=== PATIENT | female | born 1940 | race Caucasian/White ===

== ENCOUNTER → 2019-02-02 10:05 | Outpatient (CLI) | payer MEDICARE, SELFPAY ==
[2019-02-02 12:15] LABS: Alanine Aminotransferase 21 IU/L (9-52); Aspartate Aminotransferase 32 IU/L (14-36); BUN Creatinine Ratio 16.4 (6-22); Blood Urea Nitrogen 18 mg/dL (7-17); Calcium 9.9 mg/dL (8.4-10.2); Carbon Dioxide 26 mmol/L (22-32); Chloride 104 mmol/L (98-107); Cholesterol 147 mg/dL (140-199); Estimated Glomerular Filt Rate 47.8 mL/min (>60); Glucose 81 mg/dL (80-110); HDL Cholesterol 58 mg/dL (40-60); HEMOLYSIS < 15 (0-50); LDL Cholesterol Calculated 74 mg/dL (<100); Potassium 4.5 mmol/L (3.4-5.1); Sodium 139 mmol/L (137-145); Triglycerides 75 mg/dL (35-150)
[2019-02-02 12:39] LABS: TSH w/ Reflex to FT4 0.32 uIU/mL (0.47-4.68)
== END ==
PROVIDERS: Visit Provider Internal Medicine
DX: I10 Essential (primary) hypertension (principal); E03.9 Hypothyroidism, unspecified; E78.2 Mixed hyperlipidemia
CPT/HCPCS: 36415; 80048; 80061; 84439; 84443; 84450; 84460

== ENCOUNTER 2019-07-06 22:12 | Emergency (ER) | payer MEDICARE, SELFPAY ==
[2019-07-06 22:16] VITALS: BP 207/111; PULSE 80; RESP 18; TEMP 36.6; O2SAT 95
[2019-07-06 22:50] LABS: Add Manual Diff / Slide Review NO; Basophils Absolute Auto 100 /uL (0-100); Eosinophils Absolute Auto 300 /uL (0-450); Eosinophils Percent Auto 4.1 % (2-4); Hematocrit 44.1 % (36-46); Lymphocytes Absolute Auto 3300 /uL (1100-4500); Lymphocytes Percent Auto 38.5 % (25-40); Mean Corpuscular HGB Conc 34.1 % (30-36); Mean Corpuscular Hemoglobin 30.5 PG (26-34); Mean Corpuscular Volume 89.6 fL (80-100); Monocytes Absolute Auto 900 /uL (0-900); Monocytes Percent Auto 10.8 % (3-14); Neutrophils Absolute Auto 3900 /uL (1500-7000); Neutrophils Percent Auto 45.6 % (50-75); Platelet Count 313 X10^3/uL (150-400); Red Blood Cell Count 4.93 X10^6/uL (4.0-5.2); Red Cell Distribution Width 14.1 % (11.6-14.8); White Blood Cell Count 8.5 X10^3/uL (4.5-11.0)
[2019-07-06 22:53] LABS: Alanine Aminotransferase 19 IU/L (9-52); Albumin 4.2 g/dL (3.5-5.0); Albumin Globulin Ratio 1.4 (1.0-2.8); Alkaline Phosphatase 91 U/L (38-126); Aspartate Aminotransferase 34 IU/L (14-36); BUN Creatinine Ratio 26.7 (6-22); Bilirubin Total 0.3 mg/dL (0.2-1.3); Blood Urea Nitrogen 24 mg/dL (7-17); Carbon Dioxide 24 mmol/L (22-32); Chloride 105 mmol/L (98-107); Creatine Kinase 156 U/L (30-135); Estimated Glomerular Filt Rate > 60.0 mL/min (>60); Glucose 116 mg/dL (80-110); HEMOLYSIS < 15 (0-50); Lipase 252 U/L (23-300); Potassium 4.3 mmol/L (3.4-5.1); Sodium 137 mmol/L (137-145); Total Protein 7.2 g/dL (6.3-8.2)
[2019-07-06 22:57] LABS: INR 0.9 (0.9-1.3); Prothrombin Time 10.1 SECONDS (10.1-12.7)
[2019-07-06 22:59] LABS: PTT Partial Thromboplastin Tim 30 SECONDS (26.4-36.2)
[2019-07-06 23:05] LABS: Troponin I < 0.012 ng/mL (0.01-0.034)
[2019-07-06 23:08] LABS: Creatine Kinase MB 1.63 ng/mL (<2.37)
--- NOTE | 2019-07-06 23:50 | PC.NURSE ---
I was unable to locate her in ED waiting room at 2215.I informed her at triage that I would bring her back to ED allison and to notify admitting if her chest palpitations returned or if she had any other symptoms.I again notified her at approx.2230 of the same.
--- NOTE | 2019-07-07 08:44 | ED_ITS ---
HPI - Chest Pain General Chief Complaint: Chest Pain Stated Complaint: CHEST PAIN DIZZY Source: patient Mode of arrival: Ambulatory Limitations: no limitations Related Data Home Medications Medication Instructions Recorded Confirmed OMEPRAZOLE 20 mg PO QDAY #0 08/06/12 [FISH OIL] 500 mg PO QDAY #0 08/06/12 aspirin 81 mg PO QDAY #0 08/06/12 cholecalciferol (vitamin D3) 1,000 unit PO QDAY #0 08/06/12 [Vitamin D3] ezetimibe-simvastatin [Vytorin 1 tab PO QDAY #0 08/06/12 10-20] losartan 100 mg PO QDAY #0 08/16/12 [HAIR SKIN AND NAILS] 1 cap PO QDAY #0 06/01/17 ascorbic acid (vitamin C) 500 mg PO QDAY #0 06/01/17 docusate sodium 100 mg PO BIDP PRN #0 06/01/17 levothyroxine [Levoxyl] 88 mcg NG QDAY #0 06/01/17 vitamins A,C,B-jask-fwmhsy 1 cap PO QDAY #0 06/01/17 [PreserVision AREDS] Previous Rx's Medication Instructions Recorded azithromycin [Zithromax] 250 mg PO SEE INSTRUCTIONS #6 tab 06/01/17 Allergies Allergy/AdvReac Type Severity Reaction Status Date / Time Sulfa (Sulfonamide Allergy Unknown Unverified 01/04/18 13:01 Antibiotics) Patient History Medical/Surgical History Social History Smoking Status: Never smoker Family/Social History Social History Smoking Status: Never smoker Substance Use Type: does not use Exam Initial Vital Signs Initial Vital Signs: Vital Signs Temperature 98 F 07/06/19 22:16 Pulse Rate 80 07/06/19 22:16 Respiratory Rate 18 07/06/19 22:16 Blood Pressure 207/111 H 07/06/19 22:16 Pulse Oximetry 95 07/06/19 22:16 MDM - Chest Pain Lab Data Attestation: I reviewed the patient's lab results. Result diagrams: 07/06/19 22:35 07/06/19 22:35 Labs: Lab Results 07/06/19 07/06/19 07/06/19 Range/Units 22:35 22:35 22:35 WBC 8.5 (4.5-11.0) X10^3/uL RBC 4.93 (4.0-5.2) X10^6/uL Hgb 15.0 (12.0-16.0) g/dL Hct 44.1 (36-46) % MCV 89.6 (80-100) fL MCH 30.5 (26-34) PG MCHC 34.1 (30-36) % RDW 14.1 (11.6-14.8) % Plt Count 313 (150-400) X10^3/uL Neut % (Auto) 45.6 L (50-75) % Lymph % (Auto) 38.5 (25-40) % [place] % (Auto) 10.8 (3-14) % Eos % (Auto) 4.1 H (2-4) % Baso % (Auto) 1.0 (0-2) % Neut # (Auto) 3900 (3391-3923) /uL Lymph # (Auto) 3300 (5917-0965) /uL [place] # (Auto) 900 (0-900) /uL Eos # (Auto) 300 (0-450) /uL Baso # (Auto) 100 (0-100) /uL PT 10.1 (10.1-12.7) SECONDS INR 0.9 (0.9-1.3) APTT 30 (26.4-36.2) SECONDS Sodium 137 (137-145) mmol/L Potassium 4.3 (3.4-5.1) mmol/L Chloride 105 (98-107) mmol/L Carbon Dioxide 24 (22-32) mmol/L BUN 24 H (7-17) mg/dL Creatinine 0.90 (0.52-1.04) mg/dL Estimated GFR > 60.0 (>60) mL/min BUN/Creatinine Ratio 26.7 H (6-22) Glucose 116 H (80-110) mg/dL Calcium 10.0 (8.4-10.2) mg/dL Total Bilirubin 0.3 (0.2-1.3) mg/dL AST 34 (14-36) IU/L ALT 19 (9-52) IU/L Alkaline Phosphatase 91 (38-126) U/L Total Creatine Kinase 156 H (30-135) U/L CK-MB (CK-2) 1.63 (<2.37) ng/mL CK-MB (CK-2) Rel Index 1.0 L (1.5-5.0) % Troponin I < 0.012 (0.01-0.034) ng/mL Total Protein 7.2 (6.3-8.2) g/dL Albumin 4.2 (3.5-5.0) g/dL Globulin 3.0 (1.7-4.1) g/dL Albumin/Globulin Ratio 1.4 (1.0-2.8) Lipase 252 (23-300) U/L ECG Data Attestation: I personally reviewed and interpreted this ECG as follows: Interpretation: Sinus rhythm occasional ectopic complex, rate 82 P are 192 QRS is 77 QTC of 409. Nonspecific ST change. Patient has some artifact EKG 2. Shows sinus rhythm occasional ectopic premature complex. Rate 82, P are of a 181, QRS is [address] elevation depression appreciated MDM Narrative Medical decision making narrative: Patient left without being seen. Patient was hypertensive, EKGs do not show any acute changes. Shows a BUN of 24, glucose of 116, total CK is 156 with a negative troponin. Discharge Plan Departure Patient Disposition: Left Without Being Seen Clinical Impression: Patient left without being seen Discharge Date/Time: 07/07/19 00:00
== END 2019-07-07 | disposition left against medical advice (07) ==
PROVIDERS: Emergency Provider Emergency Medicine
DX: R07.9 Chest pain, unspecified (principal); I10 Essential (primary) hypertension
CPT/HCPCS: 36415; 80053; 82550; 82553; 83690; 84484; 85025; 85610; 85730; 93005; 99282

== ENCOUNTER 2019-07-14 09:36 | Inpatient (IN) | payer MEDICARE, SELFPAY ==
[2019-07-14] VITALS (13 sets, daily range): BP systolic 102–170; BP diastolic 56–98; PULSE 68–88; RESP 14–28; TEMP 36.5–37.1; O2SAT 93–99; BMI 34.1
--- NOTE | 2019-07-14 09:49 | DI.CT.S_ITS ---
PROCEDURE: CT HEAD/BRAIN WO CON INDICATIONS: confusion TECHNIQUE: Noncontrast 4.5 mm thick angled axial sections acquired from the foramen magnum to the vertex, with coronal and sagittal reformats. For radiation dose reduction, the following was used: automated exposure control, adjustment of mA and/or kV according to patient size. COMPARISON: [facility], CT, HEAD WITHOUT CONTRAST, 11/14/2012, 12:53. FINDINGS: Image quality: Excellent. CSF spaces: Basal cisterns are patent. No extra-axial fluid collections. Ventricles are normal in size and shape. Brain: No midline shift. No intracranial masses or hemorrhage. No hyperdensity in a vascular distribution to suggest infarction. Periventricular hypodensity consistent with chronic microvascular ischemic disease which is increased compared to 2013. Intracranial distal ICA atherosclerotic plaque. Age related volume loss. Skull and face: Calvarium and visualized facial bones are intact, without suspicious lesions. Sinuses: Mild because of thickening in the left ethmoid air cells. Otherwise sinuses and mastoids are clear. IMPRESSION: No acute intracranial abnormality demonstrated. Chronic microvascular ischemic change. Dictated by: Twan Fonseca M.D. on 07/14/2019 at 10:19 Approved by: Twan Fonseca M.D. on 07/14/2019 at 10:22
--- NOTE | 2019-07-14 09:53 | ED.AMS ---
HPI - Altered Mental Status General Chief Complaint: Altered Mental Status Stated Complaint: Mental Status Change Time Seen by Provider: 07/14/19 09:45 Source: patient, family and EMS Mode of arrival: EMS Limitations: altered mental status History of Present Illness HPI narrative: Patient is an 79-year-old female who presents with altered mental status. She apparently called 911 asking for help she was then found on the bathroom floor after having diarrhea is she does not remember calling 911 she does not know ear did she was very confused she is not sure what happened. I spoked with the daughter on the phone who states that she was acting herself yesterday however daughter is in [place] apparently has a granddaughter round but she seemed normal yesterday. Today just very confused she was complaining of some abdominal discomfort and diarrhea. She denies any pain she is able to follow commands. She feels like she was drugged and that her brain is foggy. MD complaint: altered mental status and confusion Timing confirmed by: family member Related Data Home Medications Medication Instructions Recorded Confirmed OMEPRAZOLE 20 mg PO QDAY #0 08/06/12 [FISH OIL] 500 mg PO QDAY #0 08/06/12 aspirin 81 mg PO QDAY #0 08/06/12 cholecalciferol (vitamin D3) 1,000 unit PO QDAY #0 08/06/12 [Vitamin D3] ezetimibe-simvastatin [Vytorin 1 tab PO QDAY #0 08/06/12 10-20] losartan 100 mg PO QDAY #0 08/16/12 [HAIR SKIN AND NAILS] 1 cap PO QDAY #0 06/01/17 ascorbic acid (vitamin C) 500 mg PO QDAY #0 06/01/17 docusate sodium 100 mg PO BIDP PRN #0 06/01/17 levothyroxine [Levoxyl] 88 mcg NG QDAY #0 06/01/17 vitamins A,C,C-eqqi-farobl 1 cap PO QDAY #0 06/01/17 [PreserVision AREDS] Previous Rx's Medication Instructions Recorded azithromycin [Zithromax] 250 mg PO SEE INSTRUCTIONS #6 tab 06/01/17 Allergies Allergy/AdvReac Type Severity Reaction Status Date / Time Sulfa (Sulfonamide Allergy Unknown Verified 07/14/19 12:00 Antibiotics) Review of Systems Review of Systems ROS Unobtainable: All systems reviewed & are unremarkable except as noted in HPI and below Constitutional Constitutional: Denies chills, Denies fever(s), Denies lethargy and Denies weakness Eyes Eyes: Denies change in vision, Denies eye discharge, Denies irritation and Denies loss of vision ENT Ears, Nose, Mouth, and Throat: Denies change in voice, Denies neck pain and Denies sore throat Cardiovascular Cardiovascular: Denies chest pain, Denies irregular heart rhythm, Denies lightheadedness, Denies palpitations, Denies dyspnea, Denies dyspnea on exertion and Denies orthopnea Respiratory Respiratory: Denies cough, Denies dyspnea, Denies dyspnea on exertion and Denies wheezing Gastrointestinal Gastrointestinal: Denies abdominal pain, Denies change in bowel habits, Reports diarrhea, Denies nausea and Denies vomiting Musculoskeletal Musculoskeletal: Denies neck pain Integumentary/Breasts Skin/Breast: Denies pruritus, Denies erythema, Denies rash and Denies wounds Neurologic Neurologic: Denies loss of vision and Denies weakness Endocrine Endocrine: Denies palpitations Allergic/Immunologic Allergic/Immunologic: Denies wheezing Patient History Social History Smoking Status: Never smoker alcohol intake: never Social History Smoking Status: Never smoker alcohol intake: never Substance Use Type: does not use Exam Initial Vital Signs Initial Vital Signs: Vital Signs Temperature 98.1 F 07/14/19 09:39 Pulse Rate 88 07/14/19 09:39 Respiratory Rate 15 07/14/19 09:39 Blood Pressure 134/74 07/14/19 09:39 Pulse Oximetry 96 07/14/19 09:39 GENERAL: Alert elderly female confused and in no acute distress. HEENT: Head atraumatic,EOMI, pupils reactive, face symmetric, Dry mucous membranes Neck: No vertebral tenderness no step-offs full range of motion no meningeal signs CARDIOVASCULAR: Regular rate and rhythm without murmurs, rubs or gallops. RESPIRATORY: Breath sounds equal bilaterally, no wheezes rales or rhonchi. ABDOMEN: Soft, nontender. Normoactive bowel sounds all 4 quadrants. No guarding or rebound. EXTREMITIES: Normal range of motion, no clubbing or edema. Neurovascularly intact. Pelvis nontender legs are of equal length NEUROLOGICAL: Alert and oriented x1. Bleach is clear no aphasia or dysarthria. Cranial nerves II through XII grossly intact. Good [id number], good [id number], strength equal bilaterally, no dysarthria or aphasia, sensation in tact to soft touch bilaterally, no visual changes, no facial droop SKIN: Warm, dry, no laceration, no petechiae, no rashes or lesions. Scores GCS Acosta coma scale eye opening: Spontaneous Acosta coma scale verbal response: Confused Acosta coma scale motor response: Obey commands Omar coma scale total score: 14 NIH Stroke Scale Level of Conciousness: Alert, keenly responsive Ask month/age: Answers both questions correctly. Open/close eyes, close hand: Performs both tasks correctly Best gaze horizontal: Normal Visual mercado: No visual loss Facial palsy: Normal symetrical movement Left arm drift: No drift for full 10 sec Right arm drift: No drift for full 10 sec Left leg drift: No drift for full 10 sec Right leg drift: No drift for full 10 sec Limb ataxia: Absent Sensory on face/arms/legs: Normal, no sensory loss Best language: No aphasia, normal Dysarthria: Normal Extinction or inattention: No abnormality Total NIH Stroke scale score: 0 Course Orders Ordered: ED Orders 07/14/19 09:37 Complete Blood Count AUTO DIFF Stat Lipase Stat Partial Thromboplastin Time Stat Prothrombin Time INR Stat 07/14/19 09:49 CT head/brain wo con Stat 07/14/19 09:52 EKG-12 Lead Stat 07/14/19 09:56 CT abdomen pelvis w con Stat 07/14/19 10:22 Blood Culture Stat 07/14/19 11:00 Acetaminophen Stat Comprehensive Metabolic Panel Stat Ethanol (ETOH) Stat Lactate (Lactic Acid) Stat Prolactin Stat Salicylate Stat Thyroid Stimulating Hormone Stat Troponin & CK Cardiac Panel Stat 07/14/19 12:29 Ictotest Urine Stat Urinalysis and Microscopic Stat Urine Culture Stat Urine Drug Screen, Rapid Stat Acetaminophen (Tylenol) 650 mg PO Q6HR PRN PRN Reason: As Needed for Fever/Mild Pain Atorvastatin Calcium (Lipitor) 40 mg PO BEDTIME POLO Enoxaparin Sodium (Lovenox) 30 mg SUBCUT DAILY POLO Sodium Chloride (Normal Saline 0.9%) 1,000 mls @ 75 mls/hr IV CONT POLO Levothyroxine Sodium (Synthroid) 100 mcg PO 0600 POLO Losartan Potassium (Cozaar) 50 mg PO DAILY POLO Memantine (Namenda) 5 mg PO BID POLO Stored In (Pharmacy) 0 each PO PRN PRN PRN Reason: . Pantoprazole Sodium (Protonix) 40 mg PO DAILY POLO Discontinued Medications Dextrose (D50w) 25 gm IV NOW ONE Stop: 07/14/19 11:55 Last Admin: 07/14/19 12:07 Dose: 25 gm Documented by: LION Sodium Chloride (Normal Saline 0.9%) 1,000 mls @ 150 mls/hr IV CONT POLO Stop: 07/14/19 13:54 Last Infusion: 07/14/19 13:28 Dose: 0 mls/hr Documented by: Infusion: 07/14/19 12:07 Dose: 1,000 mls/hr Documented by: Admin: 07/14/19 11:06 Dose: 150 mls/hr Documented by: LION Sodium Chloride (Normal Saline 0.9%) 1,000 mls @ 1,000 mls/hr IV BOLUS ONE Stop: 07/14/19 12:53 Last Admin: 07/14/19 13:29 Dose: 150 mls/hr Documented by: LION Insulin Human Regular (Humulin R) 10 unit IV NOW ONE Stop: 07/14/19 11:55 Last Admin: 07/14/19 12:07 Dose: 10 unit Documented by: LION Cosigned by: RADHA Vital Signs Vital signs: Vital Signs - 8 hr 07/14/19 09:39 07/14/19 09:49 07/14/19 11:00 Temperature 98.1 F Pulse Rate 88 73 73 Respiratory Rate 15 19 16 Blood Pressure 134/74 Blood Pressure [Left Arm] 138/70 147/98 H Pulse Oximetry 96 99 97 07/14/19 11:30 07/14/19 11:56 07/14/19 12:12 Temperature Pulse Rate 75 72 71 Respiratory Rate 18 14 16 Blood Pressure Blood Pressure [Left Arm] 138/70 152/80 H 130/56 L Pulse Oximetry 99 99 97 MDM - Altered Mental Status Lab Data Attestation: I reviewed the patient's lab results. Result diagrams: 07/14/19 09:37 07/14/19 11:00 Labs: Lab Results 07/14/19 07/14/19 07/14/19 Range/Units 09:37 09:37 09:37 WBC 15.4 H (4.5-11.0) X10^3/uL RBC 6.07 H (4.0-5.2) X10^6/uL Hgb 18.6 H (12.0-16.0) g/dL Hct 54.7 H (36-46) % MCV 90.2 (80-100) fL MCH 30.6 (26-34) PG MCHC 33.9 (30-36) % RDW 14.5 (11.6-14.8) % Plt Count 397 (150-400) X10^3/uL Neut % (Auto) 84.7 H (50-75) % Lymph % (Auto) 8.2 L (25-40) % [place] % (Auto) 6.7 (3-14) % Eos % (Auto) 0.0 L (2-4) % Baso % (Auto) 0.4 (0-2) % Neut # (Auto) 77014 H (2464-1792) /uL Lymph # (Auto) 1300 (6225-1591) /uL [place] # (Auto) 1000 H (0-900) /uL Eos # (Auto) 0 (0-450) /uL Baso # (Auto) 100 (0-100) /uL PT 10.2 (10.1-12.7) SECONDS INR 0.9 (0.9-1.3) APTT 30 (26.4-36.2) SECONDS Sodium (137-145) mmol/L Potassium (3.4-5.1) mmol/L Chloride (98-107) mmol/L Carbon Dioxide (22-32) mmol/L BUN (7-17) mg/dL Creatinine (0.52-1.04) mg/dL Estimated GFR (>60) mL/min BUN/Creatinine Ratio (6-22) Glucose (80-110) mg/dL Lactate (0.7-2.1) mmol/L Calcium (8.4-10.2) mg/dL Total Bilirubin (0.2-1.3) mg/dL AST (14-36) IU/L ALT (9-52) IU/L Alkaline Phosphatase (38-126) U/L Total Creatine Kinase (30-135) U/L CK-MB (CK-2) (<2.37) ng/mL CK-MB (CK-2) Rel Index (1.5-5.0) % Troponin I (0.01-0.034) ng/mL Total Protein (6.3-8.2) g/dL Albumin (3.5-5.0) g/dL Globulin (1.7-4.1) g/dL Albumin/Globulin Ratio (1.0-2.8) Lipase 57 D (23-300) U/L TSH (0.47-4.68) uIU/mL Prolactin (3.0-18.6) ng/mL Salicylates (<20) mg/dL Acetaminophen (10-30) ug/mL Ethyl Alcohol ( - 10) mg/dL 07/14/19 07/14/19 07/14/19 Range/Units 11:00 11:00 11:00 WBC (4.5-11.0) X10^3/uL RBC (4.0-5.2) X10^6/uL Hgb (12.0-16.0) g/dL Hct (36-46) % MCV (80-100) fL MCH (26-34) PG MCHC (30-36) % RDW (11.6-14.8) % Plt Count (150-400) X10^3/uL Neut % (Auto) (50-75) % Lymph % (Auto) (25-40) % [place] % (Auto) (3-14) % Eos % (Auto) (2-4) % Baso % (Auto) (0-2) % Neut # (Auto) (9173-8207) /uL Lymph # (Auto) (6817-0823) /uL [place] # (Auto) (0-900) /uL Eos # (Auto) (0-450) /uL Baso # (Auto) (0-100) /uL PT (10.1-12.7) SECONDS INR (0.9-1.3) APTT (26.4-36.2) SECONDS Sodium 136 L (137-145) mmol/L Potassium 5.9 H D (3.4-5.1) mmol/L Chloride 102 (98-107) mmol/L Carbon Dioxide 21 L (22-32) mmol/L BUN 48 H (7-17) mg/dL Creatinine 3.20 H (0.52-1.04) mg/dL Estimated GFR 13.9 L (>60) mL/min BUN/Creatinine Ratio 15.0 (6-22) Glucose 113 H (80-110) mg/dL Lactate 2.0 (0.7-2.1) mmol/L Calcium 10.2 (8.4-10.2) mg/dL Total Bilirubin 0.8 (0.2-1.3) mg/dL AST 37 H (14-36) IU/L ALT 17 (9-52) IU/L Alkaline Phosphatase 89 (38-126) U/L Total Creatine Kinase 184 H (30-135) U/L CK-MB (CK-2) 5.22 H (<2.37) ng/mL CK-MB (CK-2) Rel Index 2.8 (1.5-5.0) % Troponin I < 0.012 (0.01-0.034) ng/mL Total Protein 7.4 (6.3-8.2) g/dL Albumin 4.4 (3.5-5.0) g/dL Globulin 3.0 (1.7-4.1) g/dL Albumin/Globulin Ratio 1.5 (1.0-2.8) Lipase (23-300) U/L TSH 6.12 H (0.47-4.68) uIU/mL Prolactin 9.0 (3.0-18.6) ng/mL Salicylates < 10.0 (<20) mg/dL Acetaminophen < 1 L (10-30) ug/mL Ethyl Alcohol < 10 ( - 10) mg/dL Imaging Data CT scan - head: Radiologist's impression: PROCEDURE: CT HEAD/BRAIN WO CON INDICATIONS: confusion TECHNIQUE: Noncontrast 4.5 mm thick angled axial sections acquired from the foramen magnum to the vertex, with coronal and sagittal reformats. For radiation dose reduction, the following was used: automated exposure control, adjustment of mA and/or kV according to patient size. COMPARISON: [facility], CT, HEAD WITHOUT CONTRAST, 11/14/2012, 12:53. FINDINGS: Image quality: Excellent. CSF spaces: Basal cisterns are patent. No extra-axial fluid collections. Ventricles are normal in size and shape. Brain: No midline shift. No intracranial masses or hemorrhage. No hyperdensity in a vascular distribution to suggest infarction. Periventricular hypodensity consistent with chronic microvascular ischemic disease which is increased compared to 2013. Intracranial distal ICA atherosclerotic plaque. Age related volume loss. Skull and face: Calvarium and visualized facial bones are intact, without suspicious lesions. Sinuses: Mild because of thickening in the left ethmoid air cells. Otherwise sinuses and mastoids are clear. IMPRESSION: No acute intracranial abnormality demonstrated. Chronic microvascular ischemic change. Dictated by: Twan Fonseca M.D. on 07/14/2019 at 10:19 CT scan - abdomen: Radiologist's impression: PROCEDURE: CT ABDOMEN PELVIS W CON INDICATIONS: abdominal pain TECHNIQUE: After the administration of intravenous contrast, 5 mm thick sections acquired from the diaphragm to the symphysis. 5 mm coronal and sagittal reformats were acquired. For radiation dose reduction, the following was used: automated exposure control, adjustment of mA and/or kV according to patient size. COMPARISON: None. FINDINGS: Image quality: Excellent. ABDOMEN: Lung bases: Bibasilar atalectasis. No focal consolidation. No pleural effusion. Normal heart size. Small pericardial effusion. Multivessel coronary artery calcifications. Solid organs: Liver is normal in size and enhancement. Gallbladder surgically absent. Biliary system is non dilated. Pancreas enhances normally. Spleen is normal in size and enhancement. No adrenal nodules. Kidneys demonstrate normal size and enhancement, without hydronephrosis. Simple cyst in the superior renal pole. Peritoneum and bowel: Small hiatal hernia. Bowel loops demonstrate normal wall thickness and caliber. The colon is fluid filled. No free fluid or air. Nodes and vessels: No retroperitoneal or mesenteric adenopathy by size criteria. Aorta and inferior vena cava are normal in size. Calcific and noncalcific atherosclerosis of the aorta and its branches. Miscellaneous: No ventral hernias. PELVIS: Genitourinary: Bladder wall thickness is normal. Miscellaneous: No inguinal hernias or adenopathy. Bones: No suspicious bony lesions. Left total hip arthroplasty. No vertebral body compression fractures. Degenerative changes of the spine. IMPRESSION: No acute intra-abdominal findings. Small hiatal hernia. Small pericardial effusion and multivessel coronary artery calcifications. Calcific and noncalcific atherosclerosis of the abdominal aorta. Dictated by: Sarthak Bowers M.D. on 07/14/2019 at 9:32 Approved by: Sarthak Bowers M.D. on 07/14/2019 at 9:42 ECG Data Attestation: I personally reviewed and interpreted this ECG as follows: Prior ECG tracings: available for review Interpretation: Normal sinus rhythm rate 90 p.r. interval [address] changes no T-wave inversion similar to previous EKG. [facility] Narrative Medical decision making narrative: Patient went to CT prior to her labs being back. She is found have acute kidney injury creatinine of 3.2, earlier this month that was normal at 0.9. Potassium also noted to be elevated at 5.9. She still does not remember why she is in the emergency department. She would like to go home because her back hurts. She denies any pain. Patient was repositioned in the bed which helped with her back pain. Her abdomen is soft CT head and abdomen are unremarkable. Patient is given insulin and dextrose for her potassium of 5.9. She seems to be dehydrated and will need IV fluids. I have called and left a message with the [phone], who is currently in [place]. I have spoken with Dr. millard the hospitalist, he was in the ED to seen evaluate patient. Agrees with admission. Discharge Plan Departure Patient Disposition: Admitted As Inpatient Clinical Impression: Acute kidney injury, Acute hyperkalemia, Acute metabolic encephalopathy Discharge Date/Time: 07/14/19 13:26 Admit Date/Time: 07/14/19 12:27 Admit Provider: Antoinette Millard
--- NOTE | 2019-07-14 09:56 | DI.CT.S_ITS ---
PROCEDURE: CT ABDOMEN PELVIS W CON INDICATIONS: abdominal pain TECHNIQUE: After the administration of intravenous contrast, 5 mm thick sections acquired from the diaphragm to the symphysis. 5 mm coronal and sagittal reformats were acquired. For radiation dose reduction, the following was used: automated exposure control, adjustment of mA and/or kV according to patient size. COMPARISON: None. FINDINGS: Image quality: Excellent. ABDOMEN: Lung bases: Bibasilar atalectasis. No focal consolidation. No pleural effusion. Normal heart size. Small pericardial effusion. Multivessel coronary artery calcifications. Solid organs: Liver is normal in size and enhancement. Gallbladder surgically absent. Biliary system is non dilated. Pancreas enhances normally. Spleen is normal in size and enhancement. No adrenal nodules. Kidneys demonstrate normal size and enhancement, without hydronephrosis. Simple cyst in the superior renal pole. Peritoneum and bowel: Small hiatal hernia. Bowel loops demonstrate normal wall thickness and caliber. The colon is fluid filled. No free fluid or air. Nodes and vessels: No retroperitoneal or mesenteric adenopathy by size criteria. Aorta and inferior vena cava are normal in size. Calcific and noncalcific atherosclerosis of the aorta and its branches. Miscellaneous: No ventral hernias. PELVIS: Genitourinary: Bladder wall thickness is normal. Miscellaneous: No inguinal hernias or adenopathy. Bones: No suspicious bony lesions. Left total hip arthroplasty. No vertebral body compression fractures. Degenerative changes of the spine. IMPRESSION: No acute intra-abdominal findings. Small hiatal hernia. Small pericardial effusion and multivessel coronary artery calcifications. Calcific and noncalcific atherosclerosis of the abdominal aorta. Dictated by: Sarthak Bowers M.D. on 07/14/2019 at 9:32 Approved by: Sarthak Bowers M.D. on 07/14/2019 at 9:42
[2019-07-14 10:06] LABS: Add Manual Diff / Slide Review NO; Basophils Absolute Auto 100 /uL (0-100); Basophils Percent Auto 0.4 % (0-2); Eosinophils Absolute Auto 0 /uL (0-450); Hematocrit 54.7 % (36-46); Hemoglobin 18.6 g/dL (12.0-16.0); INR 0.9 (0.9-1.3); Lymphocytes Absolute Auto 1300 /uL (1100-4500); Lymphocytes Percent Auto 8.2 % (25-40); Mean Corpuscular HGB Conc 33.9 % (30-36); Mean Corpuscular Hemoglobin 30.6 PG (26-34); Mean Corpuscular Volume 90.2 fL (80-100); Monocytes Absolute Auto 1000 /uL (0-900); Monocytes Percent Auto 6.7 % (3-14); Neutrophils Absolute Auto 13100 /uL (1500-7000); Neutrophils Percent Auto 84.7 % (50-75); Platelet Count 397 X10^3/uL (150-400); Prothrombin Time 10.2 SECONDS (10.1-12.7); Red Blood Cell Count 6.07 X10^6/uL (4.0-5.2); Red Cell Distribution Width 14.5 % (11.6-14.8); White Blood Cell Count 15.4 X10^3/uL (4.5-11.0)
[2019-07-14 10:08] LABS: PTT Partial Thromboplastin Tim 30 SECONDS (26.4-36.2)
[2019-07-14 10:09] LABS: Lipase 57 U/L (23-300)
[2019-07-14 10:52] LABS: Thyroid Stimulating Hormone 6.12 uIU/mL (0.47-4.68)
[2019-07-14] MEDS: SODIUM CHLORIDE 0.9% 1,000 ML 150 ML IV ×2 (11:06→13:29)
--- NOTE | 2019-07-14 11:17 | PC.NURSE ---
on arrival pt awake, mouth very dry, pt unable to recall the event this morning, daughter had called and reported pt has been having vomiting and diarrhea. denies discomfort, denies fever , denies vomiting or diarrhea. pt follows command on arrival, skin warm dry pink.
[2019-07-14 11:40] LABS: Alanine Aminotransferase 17 IU/L (9-52); Albumin 4.4 g/dL (3.5-5.0); Albumin Globulin Ratio 1.5 (1.0-2.8); Alkaline Phosphatase 89 U/L (38-126); Aspartate Aminotransferase 37 IU/L (14-36); Bilirubin Total 0.8 mg/dL (0.2-1.3); Blood Urea Nitrogen 48 mg/dL (7-17); Calcium 10.2 mg/dL (8.4-10.2); Carbon Dioxide 21 mmol/L (22-32); Chloride 102 mmol/L (98-107); Creatine Kinase 184 U/L (30-135); Estimated Glomerular Filt Rate 13.9 mL/min (>60); Glucose 113 mg/dL (80-110); HEMOLYSIS 37 (0-50); Sodium 136 mmol/L (137-145); Total Protein 7.4 g/dL (6.3-8.2)
[2019-07-14 11:52] LABS: Potassium 5.9 mmol/L (3.4-5.1); Troponin I < 0.012 ng/mL (0.01-0.034)
[2019-07-14 11:54] LABS: Acetaminophen < 1 ug/mL (10-30); Ethanol (ETOH) < 10 mg/dL; Salicylate < 10.0 mg/dL (<20)
[2019-07-14 11:56] LABS: CKMB % Relative Index 2.8 % (1.5-5.0); Creatine Kinase MB 5.22 ng/mL (<2.37)
[2019-07-14] MEDS: INSULIN REGULAR 100 UNIT/ML 3 ML VIAL 10 UNIT IV (12:07)
[2019-07-14] MEDS: DEXTROSE 50 % IN WATER 25 GM/50 ML SYRINGE IV (12:07)
[2019-07-14 12:30] LABS: Bacteria Urine None Seen
[2019-07-14 12:50] LABS: UR Morphine/Opiate cutoff 300 Negative (Negative); Ur Creatinine Normal (Normal); Ur Specific Gravity Normal (Normal); Urine Amphetamines Negative (Negative); Urine Barbiturates Negative (Negative); Urine Benzodiazepines Negative (Negative); Urine Cocaine Negative (Negative); Urine MDMA Negative (Negative); Urine Methadone Negative (Negative); Urine Methamphetamines Negative (Negative); Urine Oxycodone Negative (Negative); Urine Phencyclidine Negative (Negative); Urine Tetrahydrocannabinol Negative (Negative); Urine Tricyclic Antidepressant Negative (Negative); Urine pH Normal (Normal)
[2019-07-14 12:54] LABS: Appearance Urine UA SL CLOUDY; Bilirubin Urine UA 1+ (NEGATIVE); Color Urine UA YELLOW; Glucose Urine UA TRACE g/dL (Negative); Ketones Urine UA NEGATIVE (NEGATIVE); Leukocyte Esterase Urine UA TRACE (NEGATIVE); Nitrite Urine UA NEGATIVE (Negative); Occult Blood Urine UA NEGATIVE (Negative); Protein Urine UA 1+ (Negative); Specific Gravity Urine UA 1.025 (1.000-1.035); Urobilinogen Urine UA 0.2 E.U./dL (0.2)
[2019-07-14 13:14] LABS: Amorphous Sediment Urine 1+; Hyaline Casts Urine 1-5/LPF; RBC Urine 0-1/HPF (0-5/HPF); Transitional Epi Cells Urine 0-1/HPF (0-5/HPF)
[2019-07-14 13:16] LABS: Ictotest Urine Positive (Negative)
[2019-07-14 13:17] LABS: Culture Indicated Urine Cult Not Indicated; WBC Urine 0-1/HPF (0-5/HPF)
--- NOTE | 2019-07-14 14:01 | PM.HP.1 ---
History of Present Illness History of Present Illness Date Patient Seen: 07/14/19 Chief complaint: Mental Status Change Narrative: This is a 79 year old female with an episode of acute mental status changes/confusion this morning. She is unable to recall any details from yesterday or the previous week. This morning she woke up on the bathroom floor and when she called 911 the medics report that there was ?stool and diarrhea all over the bathroom. She says that she has been dizzy for 2 days with vertigo. She does not remember going to the bathroom or falling. There has been no other trauma. Her daughter told the emergency department physician that a granddaughter had seen her yesterday and she was acting normal. CTs done of the head and the abdomen are reported as normal. Her admitting potassium was 5.9, which was treated with dextrose and insulin. Her family confirm that she is usually not confused like this. She is unable to remember her past medical history, family history, current medications also. Her BUN is 48 with a creatinine of 3.2. Her CK is 184 with a TSH of 6.12. Her previous creatinine earlier this month was apparently 0.9. Her presenting white blood count is 15.4 with a hemoglobin of 18.6 and a hematocrit of 54.7. A lactate will need to be done. She has no reliable memory of what medicine she takes now. The list we were able to obtain from [facility], with their most recent refills, would have run out several weeks ago if she was taking her medicines daily. Patient History Medical History (Updated 07/14/19 @ 19:46 by Antoinette Millard MD) Acute metabolic encephalopathy (Acute) Chronic GERD (Acute) Dementia (Acute) Hyperlipidemia (Acute) Hypertension (Acute) Hypothyroidism (Acute) Surgical History (Updated 07/14/19 @ 18:17 by Antoinette Millard MD) History of left hip replacement (Acute) History of left knee replacement (Acute) Hx of tonsillectomy (Acute) Social History Smoking Status: Never smoker alcohol intake: never Family & Social History Family history unavailable: Yes (Both her parents in their 80s. She cannot remember their medical hist) Social History: Her daughter Savita Barba is her backup decision maker. 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 Safety & Behavioral: Feels Safe in Current Yes Environment Been Physically Hurt or No Threatened By a Person Tobacco & Substance use: Smoking Status Never smoker Substance Use Type does not use Meds Home Medications and Allergies Home Medications Medication Instructions Recorded Confirmed Type OMEPRAZOLE 20 mg PO QDAY #0 08/06/12 History [FISH OIL] 500 mg PO QDAY #0 08/06/12 History aspirin 81 mg PO QDAY #0 08/06/12 History cholecalciferol (vitamin D3) 1,000 unit PO QDAY #0 08/06/12 History [Vitamin D3] ezetimibe-simvastatin [Vytorin 1 tab PO QDAY #0 08/06/12 History 10-20] losartan 100 mg PO QDAY #0 08/16/12 History [HAIR SKIN AND NAILS] 1 cap PO QDAY #0 06/01/17 History ascorbic acid (vitamin C) 500 mg PO QDAY #0 06/01/17 History azithromycin [Zithromax] 250 mg PO SEE INSTRUCTIONS #6 tab 06/01/17 Rx docusate sodium 100 mg PO BIDP PRN #0 06/01/17 History levothyroxine [Levoxyl] 88 mcg NG QDAY #0 06/01/17 History vitamins A,C,J-piuo-jeldes 1 cap PO QDAY #0 06/01/17 History [PreserVision AREDS] Allergies Allergy/AdvReac Type Severity Reaction Status Date / Time Sulfa (Sulfonamide Allergy Unknown Verified 07/14/19 12:00 Antibiotics) Review of Systems Review of Systems Narrative: Positive for confusion and diarrhea. Negative for fevers, chills, sweats, coughing, shortness of breath, chest pain, abdominal pain, vomiting, bleeding, rashes, seizures, headaches, sore throat, difficulty talking. Exam Vital Signs (past 8 hours): - 07/14/19 09:39 07/14/19 09:49 07/14/19 11:00 Temperature 98.1 F Pulse Rate 88 73 73 Respiratory Rate 15 19 16 Blood Pressure 134/74 Blood Pressure [Left Arm] 138/70 147/98 H Pulse Oximetry 96 99 97 07/14/19 11:30 07/14/19 11:56 07/14/19 12:12 Temperature Pulse Rate 75 72 71 Respiratory Rate 18 14 16 Blood Pressure Blood Pressure [Left Arm] 138/70 152/80 H 130/56 L Pulse Oximetry 99 99 97 07/14/19 13:01 Temperature Pulse Rate 79 Respiratory Rate 18 Blood Pressure Blood Pressure [Left Arm] 170/79 H Pulse Oximetry 99 Oxygen Delivery Method Room Air Narrative Exam Narrative: She is alert and oriented to her name and to the place but not to date. She was somewhat irritable/irritated to be questioned about pretty much everything. No apparent distress Pupils are equally round and reactive to light and accommodation. Extraocular muscles are intact. Sclerae are pink and nonicteric. Throat looks normal. No lymph nodes are felt head, neck, supraclavicular area. There is no thyromegaly. No carotid bruits are heard. JVD is less than 6 cm. Heart is regular rate and rhythm without murmur. Lungs are clear to auscultation bilaterally. Abdomen is soft, bowel sounds positive, nontender, no organomegaly. Extremities have no ankle edema. Skin has no rash or jaundice. Neuro exam motor function is 5/5 throughout. There is no tremor. Cranial nerves 2-12 tested intact. She is oriented only to place and name. Objective Labs Result Diagrams: 07/14/19 09:37 07/14/19 11:00 Labs: Laboratory Results - last 24 hr 07/14/19 07/14/19 07/14/19 09:37 09:37 09:37 WBC 15.4 H RBC 6.07 H Hgb 18.6 H Hct 54.7 H MCV 90.2 MCH 30.6 MCHC 33.9 RDW 14.5 Plt Count 397 Neut % (Auto) 84.7 H Lymph % (Auto) 8.2 L [place] % (Auto) 6.7 Eos % (Auto) 0.0 L Baso % (Auto) 0.4 Neut # (Auto) 17117 H Lymph # (Auto) 1300 [place] # (Auto) 1000 H Eos # (Auto) 0 Baso # (Auto) 100 PT 10.2 INR 0.9 APTT 30 Sodium Potassium Chloride Carbon Dioxide BUN Creatinine Estimated GFR BUN/Creatinine Ratio Glucose Lactate Calcium Total Bilirubin AST ALT Alkaline Phosphatase Total Creatine Kinase CK-MB (CK-2) CK-MB (CK-2) Rel Index Troponin I Total Protein Albumin Globulin Albumin/Globulin Ratio Lipase 57 D TSH Prolactin Urine Color Urine Appearance Urine pH Ur Specific [place] Urine Protein Urine Glucose (UA) Urine Ketones Urine Occult Blood Urine Nitrate Urine Bilirubin Urine Ictotest Urine Urobilinogen Ur Leukocyte Esterase Urine RBC Urine WBC Ur Transition Epith Cell Amorphous Sediment Urine Bacteria Hyaline Casts Ur Culture Indicated? Salicylates U Morph 300 ng/mL cutoff Ur Oxycodone Screen Urine Methadone Screen Acetaminophen Ur Barbiturates Screen U Tricyclic Antidepress Ur Phencyclidine Scrn Ur Amphetamines Screen U Methamphetamines Scrn Ur MDMA Scrn (Ecstasy) U Benzodiazepines Scrn Urine Cocaine Screen U Marijuana (THC) Screen Ethyl Alcohol 07/14/19 07/14/19 07/14/19 11:00 11:00 11:00 WBC RBC Hgb Hct MCV MCH MCHC RDW Plt Count Neut % (Auto) Lymph % (Auto) [place] % (Auto) Eos % (Auto) Baso % (Auto) Neut # (Auto) Lymph # (Auto) [place] # (Auto) Eos # (Auto) Baso # (Auto) PT INR APTT Sodium 136 L Potassium 5.9 H D Chloride 102 Carbon Dioxide 21 L BUN 48 H Creatinine 3.20 H Estimated GFR 13.9 L BUN/Creatinine Ratio 15.0 Glucose 113 H Lactate 2.0 Calcium 10.2 Total Bilirubin 0.8 AST 37 H ALT 17 Alkaline Phosphatase 89 Total Creatine Kinase 184 H CK-MB (CK-2) 5.22 H CK-MB (CK-2) Rel Index 2.8 Troponin I < 0.012 Total Protein 7.4 Albumin 4.4 Globulin 3.0 Albumin/Globulin Ratio 1.5 Lipase TSH 6.12 H Prolactin 9.0 Urine Color Urine Appearance Urine pH Ur Specific [place] Urine Protein Urine Glucose (UA) Urine Ketones Urine Occult Blood Urine Nitrate Urine Bilirubin Urine Ictotest Urine Urobilinogen Ur Leukocyte Esterase Urine RBC Urine WBC Ur Transition Epith Cell Amorphous Sediment Urine Bacteria Hyaline Casts Ur Culture Indicated? Salicylates < 10.0 U Morph 300 ng/mL cutoff Ur Oxycodone Screen Urine Methadone Screen Acetaminophen < 1 L Ur Barbiturates Screen U Tricyclic Antidepress Ur Phencyclidine Scrn Ur Amphetamines Screen U Methamphetamines Scrn Ur MDMA Scrn (Ecstasy) U Benzodiazepines Scrn Urine Cocaine Screen U Marijuana (THC) Screen Ethyl Alcohol < 10 07/14/19 07/14/19 12:29 12:29 WBC RBC Hgb Hct MCV MCH MCHC RDW Plt Count Neut % (Auto) Lymph % (Auto) [place] % (Auto) Eos % (Auto) Baso % (Auto) Neut # (Auto) Lymph # (Auto) [place] # (Auto) Eos # (Auto) Baso # (Auto) PT INR APTT Sodium Potassium Chloride Carbon Dioxide BUN Creatinine Estimated GFR BUN/Creatinine Ratio Glucose Lactate Calcium Total Bilirubin AST ALT Alkaline Phosphatase Total Creatine Kinase CK-MB (CK-2) CK-MB (CK-2) Rel Index Troponin I Total Protein Albumin Globulin Albumin/Globulin Ratio Lipase TSH Prolactin Urine Color Yellow Urine Appearance Sl cloudy Urine pH 5.0 Ur Specific [place] 1.025 Urine Protein 1+ H Urine Glucose (UA) Trace H Urine Ketones Negative Urine Occult Blood Negative Urine Nitrate Negative Urine Bilirubin 1+ H Urine Ictotest Positive H Urine Urobilinogen 0.2 Ur Leukocyte Esterase Trace H Urine RBC 0-1/hpf Urine WBC 0-1/hpf Ur Transition Epith Cell 0-1/hpf Amorphous Sediment 1+ Urine Bacteria None seen Hyaline Casts 1-5/lpf Ur Culture Indicated? Cult not indicated Salicylates U Morph 300 ng/mL cutoff Negative Ur Oxycodone Screen Negative Urine Methadone Screen Negative Acetaminophen Ur Barbiturates Screen Negative U Tricyclic Antidepress Negative Ur Phencyclidine Scrn Negative Ur Amphetamines Screen Negative U Methamphetamines Scrn Negative Ur MDMA Scrn (Ecstasy) Negative U Benzodiazepines Scrn Negative Urine Cocaine Screen Negative U Marijuana (THC) Screen Negative Ethyl Alcohol Assessment & Plan Assessment and plan (1) Acute metabolic encephalopathy: Current visit: Yes Status: Acute Assessment & Plan narrative: Alterered Mental Status -no obvious causes, Brain CT negative, UDS negative, UA negative for UTI -Dehydration/Diarrhea are most likely cause Dehydration -IV hydration initiated in the emergency department which will be continued -Unclear cause other than the observed diarrhea by reports Acute Kidney Injury - No known source of MARIAELENA other than dehydration - Continue IVF hydration and daily BMP -d oubt rhabdomyolysis with a CK total of 184. Leukocytosis - repeat WBC daily. Check Lactate. - Possibly caused by enteritis. No definite Pneumonia/Sepsis/UTI. Diarrhea -plan to send stool panel if diarrhea occurs in the hospital GERD - Continue Protonix Hypertension -continue losartan Hypothyroidism -continue levothyroxine and consider dose increase based on TSH of 6.12 Dementia - Continue Memantine, apparently no longer on Donepezil Hyperlipidemia - Continue Lipitor
[2019-07-14] MEDS: SODIUM CHLORIDE 0.9% 1,000 ML 75 ML IV (14:25)
--- NOTE | 2019-07-14 15:31 | PC.NURSE ---
Pt admitted to room 226. She is confused. She was found down at her home. She called 911 but not remember. Pt is Alert and oriented x2. Admitted for UTI and hyperkalemia. Pts skin is wnl, bs clear to auscultation and hr regular. Pt does not have any significant edema and ppx2. Report passed on to priscilla BUCKLEY.
--- NOTE | 2019-07-14 19:01 | PC.NURSE ---
Pt cannot remember what medications she currently is on or what medications she took today. She stated that EMS took all the medications in her cabinet including those that are old, that I doubt I take any more.
--- NOTE | 2019-07-14 19:12 | PC.NURSE ---
Pt is A and O to self and who the President is. She does not remember falling, calling EMS or the ride in the ambulance. She is struggling with the call button/TV remote and her cell phone. VSS. Continent using BSC and standing and turning well. She has voided 200 mLs clear yellow, smelly urine and had a sm BM. Her skin is clear. She has +2 bilat edema. SR with PVCs, mid to high 90's on RA, clear LS.
[2019-07-14] MEDS: ATORVASTATIN 20 MG TABLET 40 MG PO (20:15)
[2019-07-14] MEDS: MEMANTINE HCL 5 MG TABLET PO (20:16)
[2019-07-14] MEDS: SODIUM CHLORIDE 0.9% 1,000 ML 84 ML IV (20:16)
[2019-07-14] MEDS: ACETAMINOPHEN 325 MG TABLET 650 MG PO (22:33)
[2019-07-14] MEDS: PANTOPRAZOLE 20 MG TABLET 40 MG PO (22:46)
[2019-07-15] VITALS (8 sets, daily range): BP systolic 143–170; BP diastolic 66–78; PULSE 63–79; RESP 16–19; TEMP 36.1–36.6; O2SAT 95–98
[2019-07-15] MEDS: SODIUM CHLORIDE 0.9% 1,000 ML 84 ML IV ×2 (01:09→11:55)
[2019-07-15 05:43] LABS: Add Manual Diff / Slide Review NO; Basophils Absolute Auto 100 /uL (0-100); Basophils Percent Auto 0.6 % (0-2); Eosinophils Absolute Auto 300 /uL (0-450); Hematocrit 42.5 % (36-46); Hemoglobin 14.5 g/dL (12.0-16.0); Lymphocytes Absolute Auto 2900 /uL (1100-4500); Lymphocytes Percent Auto 22.6 % (25-40); Mean Corpuscular Hemoglobin 30.5 PG (26-34); Mean Corpuscular Volume 89.8 fL (80-100); Monocytes Absolute Auto 1500 /uL (0-900); Monocytes Percent Auto 11.8 % (3-14); Neutrophils Absolute Auto 8200 /uL (1500-7000); Platelet Count 275 X10^3/uL (150-400); Red Blood Cell Count 4.74 X10^6/uL (4.0-5.2); Red Cell Distribution Width 14.2 % (11.6-14.8); White Blood Cell Count 13.1 X10^3/uL (4.5-11.0)
[2019-07-15 06:11] LABS: BUN Creatinine Ratio 26.3 (6-22); Blood Urea Nitrogen 42 mg/dL (7-17); Calcium 9.2 mg/dL (8.4-10.2); Carbon Dioxide 20 mmol/L (22-32); Chloride 108 mmol/L (98-107); Estimated Glomerular Filt Rate 30.9 mL/min (>60); Glucose 88 mg/dL (80-110); HEMOLYSIS < 15 (0-50); Potassium 3.9 mmol/L (3.4-5.1); Sodium 136 mmol/L (137-145)
[2019-07-15] MEDS: LEVOTHYROXINE 100 MCG TABLET PO (07:38)
[2019-07-15] MEDS: ENOXAPARIN 30 MG/0.3 ML SYRINGE SUBCUT (09:44)
[2019-07-15] MEDS: PANTOPRAZOLE 40 MG TABLET PO (09:45)
--- NOTE | 2019-07-15 10:20 | DI.MRI.S_ITS ---
PROCEDURE: MR HEAD/BRAIN WO CON INDICATIONS: Confusion TECHNIQUE: Non-contrast axial T1 spin echo, axial T2 fast spin echo, sagittal and axial FLAIR, coronal T2 fast spin echo, axial gradient echo, axial diffusion and ADC through the brain. COMPARISON: [facility], MR, BRAIN WITHOUT CONTRAST, 11/08/2017, 13:26. FINDINGS: Image quality: Excellent. CSF spaces: Ventricles appear symmetric in size and shape. Basal cisterns are patent. No extra-axial fluid collections. Brain: No intracranial bleeds or mass effects. There is cerebral volume loss for age. There are periventricular and deep white matter chronic small vessel ischemic changes. Brainstem appears normal. Diffusion-weighted images show no acute ischemic insults. No chronic ischemic insults. Normal intravascular flow voids are present. Skull and face: Calvarial bone marrow is normal in signal. Orbits are normal. Sinuses: Mucosal thickening within several left ethmoidal air cells. Paranasal sinuses and mastoid air cells otherwise clear. IMPRESSION: No acute intracranial abnormality. Chronic white matter microangiopathic changes. Dictated by: Sarthak Bowers M.D. on 07/15/2019 at 12:08 Approved by: Sarthak Bowers M.D. on 07/15/2019 at 12:24
[2019-07-15] MEDS: MEMANTINE HCL 5 MG TABLET PO ×2 (11:55→20:32)
--- NOTE | 2019-07-15 12:26 | PM.PN.1 ---
Subjective Subjective Date Patient Seen: 07/15/19 Time Patient Seen: 12:26 Interval history: She is seen today to follow up her altered mental status/diarrhea/leukocytosis/dehydration/acute kidney injury and dementia/delirium. Her brain MRI today shows no acute stroke to explain her symptoms. There are no brain lesions that would explain her amnesia and acute illness. She remains without any memory of her diarrhea or why she is dehydrated. She vaguely remembers meeting me yesterday but has no recollection of coming to the hospital, being admitted to the hospital or anything beyond this morning. Her hemoglobin has dropped from 18.6-14.5 and the white count has dropped from 15.4-13.1. Her daughter is coming up from [place] tomorrow to help out with placement. My understanding is that she has been encouraging her mother to move down to [place] with her. Her creatinine has improved to 1.6 with IV fluid. Exam Vital Signs (past 8 hours): - 07/15/19 05:37 07/15/19 08:00 07/15/19 08:10 Temperature 97.7 F 97.0 F L Pulse Rate 63 66 Respiratory Rate 19 18 Blood Pressure 170/72 H 158/75 H Pulse Oximetry 96 96 97 Oxygen Delivery Method Room Air Oxygen Flow Rate 0 Narrative Exam Narrative: She is alert and oriented x3, in no apparent distress. She appears to interact quite well in the moment but has no ability to recall prior moments or interactions. Heart is regular rate and rhythm without murmur. Lungs are clear to auscultation bilaterally. Extremities have no ankle edema. She has no lateralizing neurological deficits or cranial nerve abnormalities. Objective Labs Result Diagrams: 07/15/19 05:20 07/15/19 05:20 Labs: Laboratory Results - last 24 hr 07/14/19 07/14/19 07/14/19 12:29 12:29 20:00 WBC RBC Hgb Hct MCV MCH MCHC RDW Plt Count Neut % (Auto) Lymph % (Auto) [place] % (Auto) Eos % (Auto) Baso % (Auto) Neut # (Auto) Lymph # (Auto) [place] # (Auto) Eos # (Auto) Baso # (Auto) Sodium Potassium Chloride Carbon Dioxide BUN Creatinine Estimated GFR BUN/Creatinine Ratio Glucose Lactate 1.0 Calcium Urine Color Yellow Urine Appearance Sl cloudy Urine pH 5.0 Ur Specific [place] 1.025 Urine Protein 1+ H Urine Glucose (UA) Trace H Urine Ketones Negative Urine Occult Blood Negative Urine Nitrate Negative Urine Bilirubin 1+ H Urine Ictotest Positive H Urine Urobilinogen 0.2 Ur Leukocyte Esterase Trace H Urine RBC 0-1/hpf Urine WBC 0-1/hpf Ur Transition Epith Cell 0-1/hpf Amorphous Sediment 1+ Urine Bacteria None seen Hyaline Casts 1-5/lpf Ur Culture Indicated? Cult not indicated U Morph 300 ng/mL cutoff Negative Ur Oxycodone Screen Negative Urine Methadone Screen Negative Ur Barbiturates Screen Negative U Tricyclic Antidepress Negative Ur Phencyclidine Scrn Negative Ur Amphetamines Screen Negative U Methamphetamines Scrn Negative Ur MDMA Scrn (Ecstasy) Negative U Benzodiazepines Scrn Negative Urine Cocaine Screen Negative U Marijuana (THC) Screen Negative 07/15/19 07/15/19 05:20 05:20 WBC 13.1 H RBC 4.74 Hgb 14.5 Hct 42.5 MCV 89.8 MCH 30.5 MCHC 34.0 RDW 14.2 Plt Count 275 Neut % (Auto) 63.0 D Lymph % (Auto) 22.6 L [place] % (Auto) 11.8 Eos % (Auto) 2.0 Baso % (Auto) 0.6 Neut # (Auto) 8200 H Lymph # (Auto) 2900 [place] # (Auto) 1500 H Eos # (Auto) 300 Baso # (Auto) 100 Sodium 136 L Potassium 3.9 D Chloride 108 H Carbon Dioxide 20 L BUN 42 H Creatinine 1.60 H Estimated GFR 30.9 L BUN/Creatinine Ratio 26.3 H Glucose 88 Lactate Calcium 9.2 Urine Color Urine Appearance Urine pH Ur Specific [place] Urine Protein Urine Glucose (UA) Urine Ketones Urine Occult Blood Urine Nitrate Urine Bilirubin Urine Ictotest Urine Urobilinogen Ur Leukocyte Esterase Urine RBC Urine WBC Ur Transition Epith Cell Amorphous Sediment Urine Bacteria Hyaline Casts Ur Culture Indicated? U Morph 300 ng/mL cutoff Ur Oxycodone Screen Urine Methadone Screen Ur Barbiturates Screen U Tricyclic Antidepress Ur Phencyclidine Scrn Ur Amphetamines Screen U Methamphetamines Scrn Ur MDMA Scrn (Ecstasy) U Benzodiazepines Scrn Urine Cocaine Screen U Marijuana (THC) Screen Assessment & Plan Assessment & Plan narrative: (1) Acute metabolic encephalopathy: Current visit: Yes Status: Acute Assessment & Plan narrative: Alterered Mental Status -no obvious causes, Brain CT and MRI are negative, UDS negative, UA negative for UTI -Dehydration/Diarrhea are most likely cause -looking at her medication list she appears to have a baseline of dementia which may be the primary explanation for her inability to remember the details of this acute illness. -we are expecting her daughter to arrive tomorrow, coming from [place]. This may produce more helpful information and explanations. Dehydration -IV hydration has been quite effective and should be stopped tomorrow most likely. -Unclear cause other than the observed diarrhea by reports Acute Kidney Injury - No known source of MARIAELENA other than dehydration - Continue IVF hydration and daily BMP - doubt rhabdomyolysis with a CK total of 184 on admission. Leukocytosis - repeat WBC daily. Lactate was only 1.0 on admission. - Possibly caused by enteritis. No definite Pneumonia/Sepsis/UTI. Diarrhea -plan to send stool panel if diarrhea occurs in the hospital GERD - Continue Protonix Hypertension -continue losartan Hypothyroidism -continue levothyroxine and consider dose increase based on TSH of 6.12 Dementia - Continue Memantine, apparently no longer on Donepezil Hyperlipidemia - Continue Lipitor Disposition depending on additional details, some of which may come from her family when her daughter arrives tomorrow. We have effectively ruled out a new stroke along with multiple other metabolic contributors. This may be a sudden progression of her Alzheimer's dementia along with the suspected gastroenteritis/dehydration.
--- NOTE | 2019-07-15 14:47 | PC.NURSE ---
1445 Pt oob to brp x 3 this shift, Pt voiding w/o diff. Pt remains confused to time, , situation. Can state her name correctly. Pt is unable to recall any reorientation. Pt is able to walk in the room w/sba for safety, alarms remain on. PT swallows w/o diff. Denies pain. friends visited Pt today, expect dtr, Savita, to arrive tomorrow. Pt cannot remember what meds she takes, or why she would take medications. Pt is pleasant, cooperative. MRI head done at 1300 today. IVF cont. Pt on tele: NSR noted/reported .
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
[2019-07-15] MEDS: ATORVASTATIN 20 MG TABLET 40 MG PO (20:31)
[2019-07-16] VITALS: BP 156/85; PULSE 68; RESP 16; TEMP 37; O2SAT 96
[2019-07-16 01:05] VITALS: O2SAT 97
[2019-07-16 03:56] VITALS: BP 179/74; PULSE 72; RESP 16; TEMP 36.7; O2SAT 97
[2019-07-16] MEDS: LEVOTHYROXINE 100 MCG TABLET PO (06:05)
--- NOTE | 2019-07-16 06:36 | PC.NURSE ---
Pt rested without complaints of pain or nausea overnight. Up to BR with SBA, FWW and CGA. Pt not using call light effectively, bed alarm on and signaling to staff for assist. New PIV started in left forearm. NS 84cc/hr . Pt alert and oriented at beginning of shift, telling stories. This morning pt asked where she was and why she was here. Pt appeared surprised with information. Pt settled when told her daughter Savita would be here today form [place]. Slight HTN to 170/70's, Losartan on hold, denies headache, dizziness. On tele in NSR.
[2019-07-16 07:25] VITALS: BP 159/67; PULSE 72; RESP 16; TEMP 36; O2SAT 94
--- NOTE | 2019-07-16 08:48 | CM.DANOTE ---
DCP/Assessment: Reviewed chart. Patient is a 79yr old female admitted to [facility] for changes in mental status. PCP is Dr. Chandni Bautista. Primary payor is 1)Medicare 2)A[employer]. Received ENVIRONMENTAL SERVICES ASSISTANT/SS consult for d/c planning needs. Met with patient this AM explained role. Patient expected to have MRI today. Patient alert and oriented x2 during assessment. Patient reports that she does have difficulty remembering things. Patient resides alone in [place]. Patient reports that she uses no DME and drives at baseline. Patient does have dx of acute dementia. Patient and notes indicate that patient's daughter/Savita will be arriving from [place] today to assist with d/c planning needs. Patient reports that she would like to go home. Per notes, patient has been up to bathroom with SBA and FWW. Patient anticipates that her family will want her to move to [place] so that she can be closer to them. Patient reports that her family has been discussing a move for awhile. Patient anticipates that she will most likely make the move sooner rather than later. Patient cognitively aware that her memory has worsened over the last few months. P: Anticipate home when medically stable. CM team to discuss planning with patient and daughter after she arrives from [place]. Patient has MRI scheduled for today. ABDULLAHI Weaver Discharge Planning/Care Management Advanced directive, confirm from FAMILY Start: 07/14/19 14:20 Freq: Q24H Status: Active Protocol: Document 07/14/19 16:50 SL (Rec: 07/14/19 16:50 SL [id number]) Advance Directive, confirm on record Time 16:50 Person contacted Savita Quiñonez Copy received No CM Discharge Assessment Start: 07/16/19 08:39 Freq: Status: Active Protocol: Document 07/16/19 08:39 KJS (Rec: 07/16/19 08:46 [id number]) Discharge Planning Assessment Assigned Document Management Consultant ABDULLAHI Weaver Contact Information Savita Quiñonez (daughter) Advance Directives? Yes History Provided By Patient,Medical Record Prior Living Arrangements House Household Members none Type of transporation used prior to Drives own vehicle admit Independent with ADL's Yes Is patient alert and oriented? Patient answers questions appropriately duirng assessment. Has h/o dementia Caregiver for Another No Comment Patient reports that she uses no DME at baseline. Comment Pending Discharge Plan Home Transportation Arrangement Family Whiteboard Updated in Patient Room with Yes name and ext. # of Document Management Consultant Review Status In Process Next Review Type Continued Stay Review
[2019-07-16 09:00] VITALS: O2SAT 95
[2019-07-16] MEDS: MEMANTINE HCL 5 MG TABLET PO (09:06)
[2019-07-16] MEDS: ENOXAPARIN 30 MG/0.3 ML SYRINGE SUBCUT (09:06)
[2019-07-16] MEDS: PANTOPRAZOLE 40 MG TABLET PO (09:06)
--- NOTE | 2019-07-16 10:58 | PC.NURSE ---
Addendum entered by Mallorie Dewitt R.N. 07/16/19 14:53: PT MEDICATIONS - Daniel returned pt 7 active medication bottles, pt also had 12 non narcotic bottles of medications and 1 bottle percocet with 21 tabs and 1 bottle norco with 19 tabs both , after discussion with pt, she requested that we dispose of the medications and Daniel took back for disposal, Per pt, she was aware that some medications were , stated she just emptied her medicine cabinet of all the meds she had. Addendum entered by Mallorie Dewitt R.N. 07/16/19 14:45: NEURO/DC - OT in this afternoon for lina de dc'gabriela, Daniel in pharmacy contacted to return pt own medications stored in pharmacy. Original Note: AM NOTE - pt is awake, states she feels so so, no specifc complaint discomfort, no nausea, hr 78, oriented to hospital in [place], can recall some events leading to her going down, does not remember falling to ground, does state she crawled to phone on table and was able to reach it and call 911.
[2019-07-16 11:40] VITALS: BP 159/74; PULSE 66; RESP 16; TEMP 36.3; O2SAT 96
--- NOTE | 2019-07-16 15:05 | OT.IP.EVAL ---
Current Diagnoses Metabolic encephalopathy (07/14/19) Past Medical History (Last Updated 07/14/19 @ 19:46 by Antoinette Millard MD) Acute metabolic encephalopathy (Acute) Chronic GERD (Acute) Dementia (Acute) Hyperlipidemia (Acute) Hypertension (Acute) Hypothyroidism (Acute) Surgical History (Last Updated 07/14/19 @ 18:17 by Antoinette Millard MD) History of left hip replacement (Acute) History of left knee replacement (Acute) Hx of tonsillectomy (Acute) Occupational Therapy Inpatient Evaluation/Re-Eval M1 PT/OT-IP Prior Functional Status Start: 07/16/19 15:14 Freq: NEEDED Status: Active Protocol: Document 07/16/19 15:16 CGR (Rec: 07/16/19 15:37 CGR [id number]) Medical Review Prior Functional Status Medical History Reviewed Yes Communication Pt communicates effectively. Mobility and Gait Pt was IND without AD Activities of Daily Living and IADL's Pt was IND Social History Household Members none Living Arrangements House Number of Floors (Floors) One Floor Home Environment Standard Height Toilet,Walk in Shower,Built-In Shower Seat Home Equipment Hand Held Shower,Grab Bars In Shower Employment Status Retired Additional Social History Comment Pt lives alone but has a daughter that lives in [place]. M2 OT-IP Current Condition Start: 07/16/19 15:14 Freq: Status: Active Protocol: Document 07/16/19 15:16 CGR (Rec: 07/16/19 15:37 CGR [id number]) Occupational Therapy Current Condition Current Condition Evaluation Date 07/16/19 Treatment Diagnosis Amnesia, dehydration. M3 OT- IP Subjective and Pain Start: 07/16/19 15:14 Freq: Status: Active Protocol: Document 07/16/19 15:16 CGR (Rec: 07/16/19 15:37 CGR [id number]) OT- Subjective Occupational Therapy Visit Type Type Initial Evaluation Visit Start Time 14:40 Visit Stop Time 15:05 Total Visit Minutes 25 Occupational Therapy Visit Comments Patient Comments At 79 my brain just isn't as quick. OT Pain Assessment Pain When Pain Assessed At Rest Pain Present Pain Present Denied Pain M4 OT- IP ADL's Start: 07/16/19 15:14 Freq: Status: Active Protocol: Document 07/16/19 15:16 CGR (Rec: 07/16/19 15:37 CGR [id number]) OT [id number] General Evaluation Self-Feeding Ability Independent OT ADL-Grooming General Evaluation Grooming Ability Independent OT ADL-Oral Care General Eval Oral Care Ability Independent OT ADL-Dressing General Eval Upper Body Dressing Ability Independent Lower Body Dressing Ability Independent Areas Needing Assistance Socks OT ADL-Toileting General Evaluation Toileting Ability Independent OT ADL-Bathing Comments OT Bathing Comments Not performed in this session. M5 OT- IP IADL's Start: 07/16/19 15:14 Freq: Status: Active Protocol: Document 07/16/19 15:16 CGR (Rec: 07/16/19 15:37 CGR [id number]) OT-Instrumental Activities of Daily Living Deficits IADL Deficits Identified Deficits Home Safety Awareness Awareness of Need for Assistance at Home Decreased Awareness Ability to Problem Solve Emergency Unable to Problem Solve Situations Medication Management Medication Management Comments Concerns for pt managing without assist. Money Management Money Management Comments Concerns for pt managing without assist Meal Preparation Meal Preparation Comments Concerns for pt managing without assist Manager Social Services Manager Social Services Comments Concerns for pt managing without assist Driving Driving Comments Concerns for pt continuing to drive. M6 OT- IP Functional Cognition Start: 07/16/19 15:14 Freq: Status: Active Protocol: Document 07/16/19 15:16 CGR (Rec: 07/16/19 15:37 CGR [id number]) Cognitive Factors Limiting Selfcare Function Cognitive Ability Level of Alertness Alert Patient Orientation Name,Age,Birthday,Month,Date, Place,Situation Attention Span Ability Capable of Focused Attention, Capable of Sustained Attention Ability to Follow Commands Able to Follow Multi-Step Commands Memory Description Working Impaired Safety Awareness Underestimates Need for Assistance Problem Solving Ability Unable to Identify Errors Cognitive Tests SLUMS Pt scored an 18/30 putting her into the dementia range of scores. Pt missed the day of the week and year, was only able to remember 2 of the 5 items, was not able to do simple math or repeat numbers backwards, and had difficulty with reading comprehension. OT- Vision and Hearing OT- Hearing Assessment OT- Hearing Assessment WFL OT- Vision Assessment Visual Acuity WFL,Glasses For Reading Visual Attentiveness WFL Occular Pursuits WFL Visual Convergence WFL Visual Thompson WFL Diplopia Absent M7 OT- IP Mobility and Balance Start: 07/16/19 15:14 Freq: Status: Active Protocol: Document 07/16/19 15:16 CGR (Rec: 07/16/19 15:37 CGR [id number]) OT- Bed Mobility Assessment Rolling Type of Rolling Roll to Left Level of Assistance Independent Supine to Sit Supine to Sit Assist Independent Scooting Scooting to Edge of Bed Independent OT-Transfer Assessment Sit to and From Stand Sit to and from Stand Independent Transfers Transfer Ability Independent Technique Transfer Destination Bed,Chair,Toilet Transfer Technique Stand Step Pivot Devices Transfer Assistive Devices None Comments Mobility Comments Mobility around the room. OT- Balance Assessment Sitting Balance and Reactions Static Sitting Balance Ability Normal Dynamic Sitting Balance Ability Normal Standing Balance and Reactions Static Standing Balance Ability Good Dynamic Standing Balance Ability Good M8 OT- IP Objective Assessments Start: 07/16/19 15:14 Freq: Status: Active Protocol: Document 07/16/19 15:16 CGR (Rec: 07/16/19 15:37 CGR [id number]) OT Gross Range of Motion Upper Extremity Range of Motion Assessment Within Functional Limits OT Strength Upper Extremity Strength Assessment Within Functional Limits Comments Strength Comments grossly 5/5 OT- Coordination Assessment Upper Extremity Finger to Nose Test Within Functional Limits Finger Tapping Test Within Functional Limits OT-Muscle Tone Assessment Muscle Tone WNL Yes OT Sensation Assessment Edema Edema Absent M9 OT- IP Assessment and Plan Start: 07/16/19 15:14 Freq: Status: Active Protocol: Document 07/16/19 15:16 CGR (Rec: 07/16/19 15:37 CGR [id number]) OT Summary Assessment and Plan Potential Rehabilitation Potential Excellent Analytic Complexity at Evaluation Low Summary OT Impairments Functional Cognition Progress Towards Goals Safe For Discharge Assessment Summary Pt presents as a low complexity evaluation. Pt is at her PLOF for mobility and ADLs but presents with an 18/ 30 on the SLUMS. Pt would benefit from 24 hour care/ assist. Per CM, pt's daughter will be home with pt. No further OT needs at this time. Frequency of Treatment Frequency Of Treatment Discharge Discharge Recommendations OT Discharge Recommendations Home with Assistance Home Equipment Needs none
--- NOTE | 2019-07-16 16:08 | CM.DANOTE ---
DCP/continued: Reviewed chart. Spoke with Dr. Silvestre in AM rounds. Per MD, patient is medically stable for discharge today. OT evaluation ordered today. Patient seen and cognitive score/SLUM score was 18. Met with patient and daughter/Savita from [place] at bedside. Patient and daughter aware and agreeable to d/c today. Daughter planning to discuss long-term planning over next few days. Daughter will be with patient upon d/c from [facility]. P: Home today with family support. ABDULLAHI Weaver
--- NOTE | 2019-07-17 21:20 | P.DS_ITS ---
History of Present Illness History of Present Illness Date Patient Seen: 07/16/19 Time Patient Seen: 11:20 Chief complaint: Mental Status Change Narrative: As per Dr. Millard, This is a 79 year old female with an episode of acute mental status changes/confusion this morning. She is unable to recall any details from yesterday or the previous week. This morning she woke up on the bathroom floor and when she called 911 the medics report that there was ?stool and diarrhea all over the bathroom. She says that she has been dizzy for 2 days with vertigo. She does not remember going to the bathroom or falling. There has been no other trauma. Her daughter told the emergency department physician that a granddaughter had seen her yesterday and she was acting normal. CTs done of the head and the abdomen are reported as normal. Her admitting potassium was 5.9, which was treated with dextrose and insulin. Her family confirm that she is usually not confused like this. She is unable to remember her past medical history, family history, current medications also. Her BUN is 48 with a creatinine of 3.2. Her CK is 184 with a TSH of 6.12. Her previous creatinine earlier this month was apparently 0.9. Her presenting white blood count is 15.4 with a hemoglobin of 18.6 and a hematocrit of 54.7. A lactate will need to be done. She has no reliable memory of what medicine she takes now. The list we were able to obtain from [facility] pharmacy, with their most recent refills, would have run out several weeks ago if she was taking her medicines daily. Discharge Providers Provider Date of admission: 07/14/19 12:27 Discharge Date: 07/16/19 Primary care physician: Chandni Bautista MD Consults: 07/15/19 01:07 Consult to [employer] - Office Chair Assembler Routine Comment: 07/16/19 09:50 Consult to Occupational Therapy Evaluate & Treat Comment: Physician Instructions: Evaluate and treat Discharge provider: Thai Silvestre DO Summary Hospital Course Discharge Diagnosis: (1) Acute metabolic encephalopathy, resolved, present on admission 2. Acute Dehydration, resolved 3. Acute Kidney Injury, resolved, present on admission. 4. Diarrhea, resolved. 5. GERD, chronic 6. Hypertension, chronic 7. Hypothyroidism, chronic, 8. Dementia, chronic 9. Hyperlipidemia, chronic. Hospital Course: (1) Acute metabolic encephalopathy, resolved, present on admission -Brain CT and MRI were negative, UDS negative, UA negative for UTI. -Dehydration/Diarrhea are most likely cause which led to her encephalopathy. -looking at her medication list she appears to have a baseline of dementia which may be the primary explanation for her inability to remember the details of this acute illness. 2. Acute Dehydration -secondary to diarrheal illness in setting of chronic dementia, possible decreased PO intake. She improved with IV fluids and was tolerating a diet without GI symptoms upon discharge. 3. Acute Kidney Injury, resolved, present on admission. - No known source of MARIAELENA other than dehydration, this improved with IV fluids. - doubt rhabdomyolysis with a CK total of 184 on admission. 4. Diarrhea, resolved - likely due to a viral gastroenteritis, this resolved and no stool was able to be sent for testing. 5. GERD, chronic - Continue Protonix home medication 6. Hypertension, chronic -continue losartan 7. Hypothyroidism, chronic, -continue levothyroxine, TSH of 6.12. Repeat testing as outpatient given acute illness. 8. Dementia, chronic - Continue Memantine, no longer on Donepezil - patient to return home with daughter with plans to move to [place] if patient is willing, which she was at time of discharge. 9. Hyperlipidemia, chronic. - Continue Lipitor Exam Vital Signs (past 8 hours): Oxygen Delivery Method Room Air Oxygen Flow Rate 0 Narrative Exam Narrative: She is alert and oriented x3, in no apparent distress. She appears to interact quite well in the moment but has no ability to recall prior moments or interactions. She has difficulty with short term memory. Heart is regular rate and rhythm without murmur. Lungs are clear to auscultation bilaterally. Extremities have no ankle edema. She has no lateralizing neurological deficits or cranial nerve abnormalities. Objective Labs Result Diagrams: 07/15/19 05:20 07/15/19 05:20 Discharge Plan Discharge Plan Patient Disposition: Home Discharge comment: You were admitted to the hospital for dehydration which caused some mild kidney injury. You improved with IV fluids. Your dehydration was likely secondary to a viral gastroenteritis which is now resolved. You had some changes in your mentation that improved. Serious etiologies including str ron were evaluated with an MRI which was negative. She has some cognitive impairment but is safe to discharge home with her daughter. Daughter is planning on trying to move patient to [place] and closer to family if she is agreeable. Discharge Med Rec/Prescriptions Prescriptions: Continued cholecalciferol (vitamin D3) [Vitamin D3] 1,000 UNIT tablet 1,000 unit PO QDAY Qty: 0 RF: 0 [FISH OIL] 500 mg PO QDAY Qty: 0 RF: 0 aspirin 81 MG tablet,delayed release (DR/EC) 81 mg PO QDAY Qty: 0 RF: 0 ascorbic acid (vitamin C) 500 MG tablet 500 mg PO QDAY Qty: 0 RF: 0 docusate sodium 100 MG capsule 100 mg PO BIDP PRN (Reason: constipation) Qty: 0 RF: 0 PreserVision AREDS 1 EACH capsule 1 cap PO QDAY Qty: 0 RF: 0 [HAIR SKIN AND NAILS] 1 cap PO QDAY Qty: 0 RF: 0 donepezil 10 mg tablet 10 mg PO DAILY RF: 0 levothyroxine 100 mcg tablet 100 mcg PO DAILY RF: 0 pantoprazole 40 mg tablet,delayed release (DR/EC) 40 mg PO DAILY RF: 0 memantine 10 mg tablet 10 mg PO BID RF: 0 losartan 50 mg tablet 50 mg PO DAILY RF: 0 atorvastatin 40 mg tablet 40 mg PO DAILY RF: 0 Follow up/Referrals: Chandni Bautista MD [Primary Care Provider] - Provider Discharge Instructions Diet: Diet as Tolerated Activity: As tolerated Visit Report/Discharge Packet Instructions: DI for Dehydration -- Adult Discharge Data Primary Care Provider: Chandni Bautista Discharges patient from system. Discharge Date/Time: 07/16/19 15:59
== END 2019-07-16 15:59 | disposition home or self-care (01) | DRG 71 ==
LOC: ED 12:14 → AC 12:27
PROVIDERS: Admitting Provider Family Medicine; Emergency Provider Emergency Medicine; PCP Internal Medicine; Visit Provider Family Medicine
DX: G93.41 Metabolic encephalopathy (principal); N17.9 Acute kidney failure, unspecified; E86.0 Dehydration; R19.7 Diarrhea, unspecified; K21.9 Gastro-esophageal reflux disease without esophagitis; I10 Essential (primary) hypertension; E03.9 Hypothyroidism, unspecified; F03.90 Unspecified dementia, unspecified severity, without behavioral disturbance, psychotic disturbance, mood disturbance, and anxiety; E78.5 Hyperlipidemia, unspecified
CPT/HCPCS: 36415; 70450; 70551; 74177; 80048; 80053; 80305; 80320; 80329; 81001; 82550; 82553; 83605; 83690; 84146; 84443; 84484; 85025; 85610; 85730; 87040; 87086; 93005; 96361; 96374; 97127; 97165; 99284; 99285; G0480; J1650; Q9967